=== PATIENT | female | born 1990 | race Caucasian/White ===

== ENCOUNTER 2017-03-09 18:28 | Emergency (ER) | payer OTHER ==
[2017-03-09 19:00] VITALS: BP 128/76; PULSE 113; RESP 18; TEMP 99.2
[2017-03-09] MEDS ORDERED: SODIUM CHLORIDE 0.9% 1,000 ML IV ONE (19:13)
--- NOTE | 2017-03-09 19:26 | ED ---
General Adult HPI - General Chief complaint: Vaginal Bleeding Stated complaint: 7 WEEKS ,BLEEDING BACK AND ABDOMINAL PAIN Time Seen by Provider: 03/09/17 19:11 Source: patient Mode of arrival: ambulatory Limitations: no limitations - History of Present Illness Initial comments: patient is a 26-year-old female who presents with a chief complaint of abdominal cramping, and vaginal bleeding at 7 weeks . Patient states that her bleeding started yesterday. She called her [facility] [employer] TESTER's office today and was advised that her bleeding may be due secondary to intercourse yesterday. The patient states that initially her cramping and bleeding resolved however earlier this evening it began again and is worse. Patient has started bleeding again. She cannot identify any exacerbating or alleviating factors. Timing is constant, patient states that she is not using more than 1 pad an hour. - Related Data Home Medications Medication Instructions Recorded Confirmed Pnv,Calcium 72/Iron/Folic Acid 1 tab PO DAILY 12/18/15 03/09/17 [ Plus Tablet] Allergies Allergy/AdvReac Type Severity Reaction Status Date / Time No Known Allergies Allergy Verified 03/09/17 19:07 Review of Systems ROS Statement: Those systems with pertinent positive or pertinent negative responses have been documented in the HPI. ROS Other: All systems not noted in ROS Statement are negative. Constitutional: Denies: fever Eyes: Denies: vision change ENT: Denies: throat pain Respiratory: Denies: cough Cardiovascular: Denies: chest pain Gastrointestinal: Reports: abdominal pain. Denies: nausea, vomiting Genitourinary: Reports: other (vaginal bleeding) Musculoskeletal: Denies: back pain Skin: Denies: rash Neurological: Denies: headache Past Medical History Past Medical History: No Reported History History of Any Multi-Drug Resistant Organisms: None Reported Past Surgical History: No Surgical Hx Reported Past Anesthesia/Blood Transfusion Reactions: No Reported Reaction Past Psychological History: No Psychological Hx Reported Smoking Status: Never smoker Past Drug Use History: None Reported - Past Family History Father Family Medical History: Diabetes Mellitus, Hyperlipidemia, Hypertension General Exam Limitations: no limitations General appearance: alert, in no apparent distress Head exam: Present: atraumatic, normocephalic Respiratory exam: Present: normal lung sounds bilaterally Cardiovascular Exam: Present: regular rate, normal rhythm GI/Abdominal exam: Present: soft, tenderness (patient has tenderness in the suprapubic region). Absent: distended Rectal exam: Present: deferred Back exam: Present: normal inspection. Absent: CVA tenderness (R), CVA tenderness (L) Neurological exam: Present: alert, oriented X3 Psychiatric exam: Present: normal affect, normal mood Course Vital Signs 03/09/17 18:57 Temperature 99.2 F Pulse Rate 113 H Respiratory 18 Rate Blood Pressure 128/76 O2 Sat by Pulse 97 Oximetry Medical Decision Making - Medical Decision Making patient presents with chief complaint of vaginal bleeding at 7 weeks . I discussed the proposed workup however patient states that she will not have her blood drawn today and she does not like needles. I discussed with her the risks and benefits of refusing evaluation including the need for a program evaluation. At this time, patient states that she was not like to proceed with blood work at this time and would rather defer to her [employer]. Patient is agreeable to have an ultrasound, and urinalysis. 10:18 PM Urinalysis is not all for evidence of infection. Pelvic ultrasound shows a spherical intrauterine gestational sac without pole measured at 5 weeks and 1 day. Exam today is limited by patient's refusal for any lab work. At this time this will be treated as a threatened and the patient was instructed to follow-up with [facility] [employer] tomorrow. She was given Wasn't signs and symptoms that should prompt return visit to the emergency department. - Lab Data Lab Results 03/09/17 Range/Units 19:50 Urine Color Yellow Urine Appearance Clear (Clear) Urine pH 5.5 (5.0-8.0) Ur Specific [place] 1.015 (1.001-1.035) Urine Protein Negative (Negative) Urine Glucose (UA) Negative (Negative) Urine Ketones Trace H (Negative) Urine Blood Moderate H (Negative) Urine Nitrite Negative (Negative) Urine Bilirubin Negative (Negative) Urine Urobilinogen <2.0 (<2.0) mg/dL Ur Leukocyte Esterase Negative (Negative) Urine RBC 23 H (0-5) /hpf Urine WBC 1 (0-5) /hpf Ur Squamous Epith Cells 1 (0-4) /hpf Disposition Clinical Impression: Threatened Disposition: HOME SELF-CARE Condition: Good Instructions: Threatened Miscarriage (ED) Referrals: Jason Lane MD [Primary Care Provider] - 1-2 days
[2017-03-09 20:09] LABS: Appearance,Urine Clear (Clear); Bilirubin,Urine Negative (Negative); Glucose,Urine (UA) Negative (Negative); Ketones,Urine Trace (Negative); Leukocyte Esterase,Urine Negative (Negative); Nitrite,Urine Negative (Negative); PH, Urine 5.5 (5.0-8.0); Particle Count 898; Protein,Urine Negative (Negative); RBC,Urine 23 /hpf (0-5); Specific Gravity,Urine 1.015 (1.001-1.035); Squamous Epithelial Cell,Urine 1 /hpf (0-4); UA Billing (MACRO vs. MICRO) MICRO; Urobilinogen,Urine <2.0 mg/dL (<2.0); WBC,Urine 1 /hpf (0-5)
--- NOTE | 2017-03-09 22:01 | US ---
EXAMINATION TYPE: US OB <=14 wks transvag DATE OF EXAM: 03/09/2017 COMPARISON: NONE CLINICAL HISTORY: Pain. Bleeding EXAM PERFORMED: Transvaginal (TV) and Transabdominal (TA) EXAM MEASUREMENTS: GESTATIONAL AGE / DATING Physician Established: Not yet established Dates by LMP: (6 weeks/5 days) EDC: 10/28/2017 Dates by First Scan: No previous this is first scan Dates by Current Scan for: (5 weeks/1 days) EDC: 11/08/2017 MATERNAL ANATOMY Uterus: 7.6 x 4.4 x 5.7 cm Right Ovary: 3.0 x 2.1 x 2.5cm Left Ovary: 3.0 x 1.8 x 2.3 cm Post CDS / Adnexa: wnl Presence of free fluid: yes Presence of corpus luteal cyst: no Presence of subchorionic bleed: no GESTATION / SURVEY CRL: Not seen at this time MSD: 1.1 cm (5 weeks/1 days) Yolk Sac (normal less than 6mm): 3mm IUP: No IUP seen at this time Date of LMP: 01/21/2017 Beta HcG (if available): Not available at this time patient refused test Gestational sac seen measuring 5 week 1 day. No pole seen at this time IMPRESSION: INTRAUTERINE DOCUMENTED WITH SPHERICAL YOLK SAC, CORRESPONDING WITH 5 WEEK 1 DAY GESTATION SONOGRAPHICALLY.
== END 2017-03-09 22:26 | disposition home or self-care (01) ==
LOC: EC 18:28
DX: O20.0 Threatened abortion (principal); Z53.8 Procedure and treatment not carried out for other reasons; Z3A.01 Less than 8 weeks gestation of pregnancy; Z79.899 Other long term (current) drug therapy
CPT/HCPCS: 76801; 76817; 81001; 99284

== ENCOUNTER → 2017-03-26 | Outpatient (CLI) | payer OTHER ==
--- NOTE | 2017-03-26 10:03 | US ---
EXAMINATION TYPE: US OB <= 14 wk fetus DATE OF EXAM: 03/26/2017 COMPARISON: 03/09/2017 CLINICAL HISTORY: Z36 F/U PREV ABN ULTRASOUND. Follow up abnormal ultrasound EXAM PERFORMED: Transabdominal (TA) EXAM MEASUREMENTS: GESTATIONAL AGE / DATING Physician Established: Not yet established Dates by LMP: (9 weeks/1 days) EDC: 10/28/17 Dates by First Scan: (7 weeks/4 days) EDC: 11/08/17 Dates by Current Scan for: (8 weeks/2 days) EDC: 11/03/17 MATERNAL ANATOMY Uterus: 10.4 x 5.1 x 7.1cm Right Ovary: 4.9 x 2.0 x 2.5cm Left Ovary: 2.9 x 1.3 x 2.1cm Post CDS / Adnexa: appears wnl Presence of free fluid: no Presence of corpus luteal cyst: yes, hypoechoic area right ovary = 2.1 x 2.1 x 2.0cm GESTATION / SURVEY CRL: 1.8cm (8 weeks/2 days) Yolk Sac (normal less than 6mm): 0.4cm Heart Rate: 170 bpm Rhythm: Normal IUP: Viable IUP Date of LMP: 01/21/17 Beta HcG (if available): unavailable Single viable IUP 8wks/2days with ALLEN of 11/03/17. Probable corpus luteum right ovary IMPRESSION: 1. Single intrauterine gestation estimated at 8 weeks 2 days gestation based on current ultrasound me asurements of the crown-rump length. Fetus has a heart rate of 170 bpm.
== END | disposition home or self-care (01) ==
LOC: RADUSWWP 09:02
PROVIDERS: ATTEND Obstetrics & Gynecology
DX: Z36.89 Encounter for other specified antenatal screening (principal); Z3A.08 8 weeks gestation of pregnancy
CPT/HCPCS: 76801

== ENCOUNTER → 2017-03-31 | Outpatient (CLI) | payer OTHER ==
[2017-03-31 14:44] LABS: HCT 38.7 % (34.0-46.0); MCH 29.7 pg (25.0-35.0); MCHC 33.5 g/dL (31.0-37.0); MCV 88.8 fL (80.0-100.0); Mean Platelet Volume 7.3; Platelet Count 188 k/uL (150-450); RBC 4.36 m/uL (3.80-5.40); RDW 12.1 % (11.5-15.5); WBC 9.2 k/uL (3.8-10.6)
[2017-03-31 14:56] LABS: Glucose 106 mg/dL (74-99)
[2017-03-31 20:27] LABS: HIV AB P24 Non-Reactive (Non-Reactive); HIV P24 AG Non-Reactive (Non-Reactive)
[2017-04-02 05:15] LABS: Toxoplasma Antibody (IgG) <3.0 IU/mL (<7.2); Toxoplasma Antibody (IgM) <3.0 AU/mL (<8.0)
== END | disposition home or self-care (01) ==
LOC: LABWHC1 14:11
PROVIDERS: ATTEND Obstetrics & Gynecology
DX: O26.811 Pregnancy related exhaustion and fatigue, first trimester (principal); Z3A.00 Weeks of gestation of pregnancy not specified
CPT/HCPCS: 36415; 82565; 82947; 85027; 86762; 86777; 86778; 86780; 86850; 86900; 86901; 87340; 87390

== ENCOUNTER → 2017-06-03 | Outpatient (CLI) | payer OTHER ==
--- NOTE | 2017-06-04 08:11 | US ---
EXAMINATION TYPE: US OB anatomy transabd DATE OF EXAM: 06/03/2017 COMPARISON: NONE HISTORY: O36.62X0 Large for dates second trimester LGA TECHNIQUE: EXAM MEASUREMENTS: GESTATIONAL AGE / DATING Physician Established: (17 weeks/4 days) 11/07/2017 EDC: Dates by LMP: (19 weeks/0 days) EDC: 10/28/2017 Dates by First Scan: (17 weeks/3 days) EDC: 11/08/2017 Dates by Current Scan for: (18 weeks/3 days) EDC: 11/02/2017 SURVEY IUP: Single PLACENTA: Posterior PREVIA: No previa REYES: 12.1 cm Normal CERVICAL LENGTH (transabdominal: norm > 3.0cm): 3.4 cm BIOMETRY PRESENTATION: Breech LIE: Longitudinal BPD: 4.0 cm 18 weeks / 2 days HC: 15.3 cm 18 weeks / 3 days AC: 13.1 cm 18 weeks / 5 days FL: 2.5 cm 17 weeks / 4 days ESTIMATED WEIGHT IN GRAMS: 226 grams ESTIMATED WEIGHT IN LBS/OZ: 0 lbs. 8 oz. WEIGHT PERCENTAGE BASED ON ESTABLISHED DATE: 80 % HC/AC: 1.1 Normal FL/AC: 19 Normal HEART RATE: 139 bpm RHYTHM: Normal ANATOMY SEEN (within normal limits): * Lateral Vent (< 1 cm) 0.4 cm * Cisterna Magna (< 1.1 cm) 0.2 cm * Nuchal Fold (< 0.6 cm) 0.2 cm * Cerebellum (varies with age) 1.8 cm Choroid Plexus (bilateral) Midline Falx Cavus Septi Pellucidi Four Chamber Heart Outflow tracts: LVOT/RVOT Stomach Situs Nose / Lips Diaphragm Kidneys (bilateral) Bladder Cord Insert Three Vessel Cord Longitudinal Spine Transverse Spine Arms (bilateral) Legs (bilateral) IMPRESSION: 1. Single intrauterine gestation estimated at 18 weeks 3 days gestation. Cardiac activity measures 13 9 bpm. 2. Calculated EDC based on current measurements is 11/02/2017.
== END | disposition home or self-care (01) ==
LOC: RADUSWWP 08:14
PROVIDERS: ATTEND Obstetrics & Gynecology
DX: O36.62X0 Maternal care for excessive fetal growth, second trimester, not applicable or unspecified (principal); Z3A.18 18 weeks gestation of pregnancy
CPT/HCPCS: 76811

== ENCOUNTER → 2017-07-18 | Outpatient (CLI) | payer OTHER ==
[2017-07-18 10:22] LABS: HCT 34.2 % (34.0-46.0); HGB 11.3 gm/dL (11.4-16.0); MCH 29.5 pg (25.0-35.0); MCV 89.4 fL (80.0-100.0); Mean Platelet Volume 7.3; Platelet Count 155 k/uL (150-450); RBC 3.82 m/uL (3.80-5.40); WBC 9.2 k/uL (3.8-10.6)
== END | disposition home or self-care (01) ==
LOC: LABWHC1 08:47
PROVIDERS: ATTEND Obstetrics & Gynecology
DX: Z34.82 Encounter for supervision of other normal pregnancy, second trimester (principal); Z3A.00 Weeks of gestation of pregnancy not specified
CPT/HCPCS: 36415; 82950; 85027

== ENCOUNTER → 2017-09-25 | Outpatient (CLI) | payer OTHER ==
--- NOTE | 2017-09-25 11:09 | US ---
EXAMINATION TYPE: US OB anatomy transabd DATE OF EXAM: 09/25/2017 COMPARISON: NONE HISTORY: O36.63X0 LARGE FOR DATES TECHNIQUE: Transabdominal (TA) EXAM MEASUREMENTS: GESTATIONAL AGE / DATING Physician Established: (35 weeks/2 days) EDC: 10/28/17 Dates by LMP: (35 weeks/2 days) EDC: 10/28/17 Dates by First Scan: (34 weeks/3 days) EDC: 11/03/17 Dates by Current Scan for: (33 weeks/1 days) EDC: 11/12/17 SURVEY IUP: Single PLACENTA: Posterior PREVIA: No previa REYES: 10.69 cm CERVICAL LENGTH (transabdominal: norm > 3.0cm): 3.2 cm BIOMETRY PRESENTATION: Vertex LIE: Longitudinal BPD: 8.5 cm 34 weeks / 1 days HC: 30.7 cm 34 weeks / 1 days AC: 30.0 cm 34 weeks / 0 days FL: 6.3 cm 32 weeks / 4 days ESTIMATED WEIGHT IN GRAMS: 2235 grams ESTIMATED WEIGHT IN LBS/OZ: 4 lbs. 15 oz. WEIGHT PERCENTAGE BASED ON ESTABLISHED DATE: 10 % HC/AC: 1.0 FL/AC: 20.9 HEART RATE: 143 bpm RHYTHM: Normal ANATOMY SEEN (within normal limits): * Cisterna Magna (< 1.1 cm) 0.4 cm Midline Falx Cavus Septi Pellucidi Four Chamber Heart Stomach Situs Nose / Lips Diaphragm Kidneys (bilateral) Bladder Three Vessel Cord Longitudinal Spine Transverse Spine ANATOMY NOT SEEN: due to shadowing from bone, advanced age, position, crowding Arms (bilateral) Legs (bilateral) Cord Insert Outflow tracts: LVOT/RVOT * Nuchal Fold (< 0.6 cm) cm * Cerebellum (varies with age) cm Choroid Plexus (bilateral) * Lateral Vent (< 1 cm) cm IMPRESSION: Limited survey. Single viable intrauterine corresponding to ultrasound age related 33 weeks 1 day with estimated date of delivery 11/12/2017.
== END | disposition home or self-care (01) ==
LOC: RADUSWWP 07:45
PROVIDERS: ATTEND Obstetrics & Gynecology
DX: O36.63X0 Maternal care for excessive fetal growth, third trimester, not applicable or unspecified (principal); Z3A.33 33 weeks gestation of pregnancy
CPT/HCPCS: 76811

== ENCOUNTER → 2017-10-09 | Outpatient (CLI) | payer OTHER ==
--- NOTE | 2017-10-12 08:29 | US ---
EXAMINATION TYPE: US OB >= 14 wk fetus DATE OF EXAM: 10/09/2017 COMPARISON: US 09/25/2017 CLINICAL HISTORY: 26-year-old female O36.5930Maternal care for other known or suspected Measuring sm all TECHNIQUE: Transabdominal (TA) FINDINGS: GESTATIONAL AGE / DATING Physician Established: (37 weeks/2 days) EDC: 10/28/2017 Dates by LMP: (37 weeks/2 days) EDC: 10/28/2017 Dates by First Scan: (36 weeks/3 days) EDC: 11/03/2017 Dates by Current Scan: (35 weeks/5 days) EDC: 11/08/2017. 4 days more growth than expected from 09/25/17. SURVEY IUP: Single PLACENTA: Posterior PREVIA: No Previa REYES: 9.9 cm Normal CERVICAL LENGTH (transabdominal: norm > 3.0cm): 3.5 cm BIOMETRY PRESENTATION: Vertex LIE: Longitudinal BPD: 8.95 cm 36 weeks / 2 days HC: 32.13 cm 36 weeks / 2 days AC: 31.22 cm 35 weeks / 1 days FL: 7.05 cm 36 weeks / 1 days ESTIMATED WEIGHT IN GRAMS: 2733 grams ESTIMATED WEIGHT IN LBS/OZ: 6 lbs. 0 oz. WEIGHT PERCENTAGE BASED ON ESTABLISHED DATES: 18.2% (vs 10th percentile on 09/25/2017) HC/AC: 1.03 Normal FL/AC: 22.59 Normal HEART RATE: 126 bpm RHYTHM: Normal Viable IUP, measurements consistent with dates. Preliminary results called to Dr Ngo at time of exam. IMPRESSION: 1. Single live intrauterine with established gestational age of 37 weeks 2 days by LMP. Cur rent ultrasound biometry is smaller by 1 week and 4 days but with 4 days more growth than expected fr 09/25/2017. 2. EFW has increased from the 10th percentile on 09/25/2017 now to the 18th percentile. Continued follo w-up as indicated.
== END | disposition home or self-care (01) ==
LOC: RADUSWWP 15:40
PROVIDERS: ATTEND Obstetrics & Gynecology
DX: O36.5930 Maternal care for other known or suspected poor fetal growth, third trimester, not applicable or unspecified (principal); Z3A.37 37 weeks gestation of pregnancy
CPT/HCPCS: 76805

== ENCOUNTER 2017-10-10 17:09 | Inpatient (IN) | payer OTHER ==
--- NOTE | 2017-10-10 20:16 | P.HPOB ---
History of Present Illness H&P Date: 10/10/17 Chief Complaint: Contractions. This patient is a pleasant 26-year-old 2 para 1 female estimated date of confinement 10/28/2017 estimated gestational age 37-3/7 weeks gestation who is admitted to labor and delivery with complaints of regular painful contractions that started at 2:30 this afternoon. Patient initially was 2 cm dilated is now 4 cm dilated thought to be in active labor. care is complicated by small for gestational age which was diagnosed at 35 weeks. Most recently she did have an ultrasound that showed the growth to be at the 60th percentile and had interval growth. Estimated weight at this time is 5-1/ 2 pounds. care otherwise has been uncomplicated. Review of Systems Constitutional: Denies chills, Denies fever Gastrointestinal: Reports heartburn Genitourinary: Reports Menstruation: Reports amenorrhea Past Medical History Past Medical History: No Reported History History of Any Multi-Drug Resistant Organisms: None Reported Past Surgical History: No Surgical Hx Reported Past Anesthesia/Blood Transfusion Reactions: No Reported Reaction Past Psychological History: No Psychological Hx Reported Smoking Status: Never smoker Past Alcohol Use History: None Reported Past Drug Use History: None Reported - Past Family History Father Family Medical History: Diabetes Mellitus, Hyperlipidemia, Hypertension Medications and Allergies Home Medications Medication Instructions Recorded Confirmed Type Ranitidine HCl [Zantac] 75 mg PO BID PRN 10/10/17 10/10/17 History Allergies Allergy/AdvReac Type Severity Reaction Status Date / Time No Known Allergies Allergy Verified 10/10/17 17:21 Exam Vital Signs Temp Pulse Resp BP 10/10/17 17:23 99.2 F 81 16 128/80 Intake and Output 10/10/17 10/10/17 10/10/17 06:59 14:59 22:59 Other: Weight 58.967 kg - OBG Physical Exam Abdomen: bowel sounds normal, no diffuse tenderness, no bruit present, no guarding noted, no hepatomegaly, no splenomegaly, no mass Vulva: both: normal Vagina: normal moisture, no discharge Cervix: lesion (Cervix per the RN is 4 cm dilated.) Uterus: enlarged (Fundal height is 36 cm) Results blood work shows she is AB+, rubella immune, RPR nonreactive, hepatitis B negative, HIV is nonreactive, Glucola was normal, group B strep was negative, ultrasound most recently showed estimated weight approximately 5 -1/2 pounds at the 16th percentile. Assessment and Plan Assessment: This is a pleasant 26-year-old 2 para 1 female 37-3/7 weeks gestation admitted to labor and delivery in active labor. Baby does appear to be small for gestational age but otherwise uncomplicated . Plan is anticipate normal vaginal delivery. (1) Normal labor Current Visit: No Status: Acute Code(s): O80 - ENCOUNTER FOR FULL-TERM UNCOMPLICATED DELIVERY SNOMED Code(s): 17505174 (2) Third trimester Current Visit: No Status: Acute Code(s): Z33.1 - STATE, INCIDENTAL SNOMED Code(s): 64070362
[2017-10-10] MEDS: LACTATED RINGERS 1,000 ML IV SCH ×2 (20:20→20:59)
[2017-10-10] MEDS ORDERED: LIDOCAINE 1% (PF) 10 MG/ML (30 ML SDV) SQ PRN (20:22)
[2017-10-10] MEDS ORDERED: CARBOPROST TROMETHAMINE 250 MCG/ML 1 ML AMP IM PRN (20:22)
[2017-10-10] MEDS ORDERED: OXYTOCIN 10 UNIT/ML 1 ML VIAL IM PRN (20:22)
[2017-10-10] MEDS ORDERED: TERBUTALINE 1 MG/ML VIAL SQ PRN (20:22)
[2017-10-10] MEDS ORDERED: METHYLERGONOVINE 0.2 MG/ML 1 ML AMP IM PRN (20:22)
--- NOTE | 2017-10-10 20:26 | P.MSEPDOC ---
Presenting Problems - Arrival Data Date of Arrival on Unit: 10/10/17 Time of Arrival on Unit: 17:09 Mode of Transport: Ambulatory - Complaint OB-Reason for Admission/Chief Complaint: Possible Onset of Labor Comment: 1430 q 5min Medical History - Information : 2 Para: 1 Term: 1 : 0 Abortions: Spontaneous or Elective: 0 Number of Living Children: 1 - Gestational Age Gestational Age by ALLEN (wks/days): 37 Weeks and 3 Days Review of Systems - Review of Systems Constitutional: No problems Breast: No problems ENT: No problems Cardiovascular: No problems Respiratory: No problems Gastrointestinal: No problems Genitourinary: No problems Musculoskeletal: No problems Neurological: No problems Skin: No problems Vital Signs - Temperature Temperature: 99.2 F Temperature Source: Temporal Artery Scan - Pulse Right Brachial Pulse Rate: 81 Pulse Assessment Method: Automatic Cuff - Respirations Respiratory Rate: 16 Oxygen Delivery Method: Room Air - Blood Pressure Right Arm Blood Pressure: 128/80 Blood Pressure Mean: 96 Blood Pressure Source: Automatic Cuff Medical Screen Scoring (Pre) - Cervical Exam Dilation: 1-3 cm = 1 Effacement: More than 50% = 2 Membranes: Intact - Uterine Contractions Frequency: > or = 36 weeks =2 Duration: > 40 seconds = 2 Intensity: N/A - Maternal Vital Signs Maternal Temperature: N/A Maternal Blood Pressure: N/A Signs of Preeclampsia: N/A Maternal Respirations: N/A - Pain Assessment Pain Location and Character: Abdomen Pain Scale Used: Numeric (1 - 10) Pain Intensity: 5 Pain Description: *Acute, Tightness Pain Frequency: Intermittent Pain Duration: 3 Pain Duration Units: Hours Pain Behavior: None Exhibited Pain Aggravating Factors: Contractions - Maternal Trauma Maternal Trauma: N/A - Assessment Baseline FHR: 125 Heart Rate - NICHD Category: Category I (Normal) = 0 NST: Reactive Position: N/A Station: N/A - Total Score Total Score (Pre): 7 - Level of Risk Level of Risk: Medium (6-9) Medical Screen Scoring (Post) - Cervical Exam Dilation: 1-3 cm = 1 Effacement: More than 50% = 2 Membranes: Intact - Uterine Contractions Frequency: > or = 36 weeks =2 Duration: > 40 seconds = 2 Intensity: N/A - Total Score Total Score (Post): 7 - Post Treatment Level of Risk Post Treatment Level of Risk: Medium (6-9) Physician Notification (Post) - Physician Notified Physician Notified Date: 10/10/17 Physician Notified Time: 19:45 Physician/Practitioner Notified:: Dr. Ngo Spoke With: Dr. Ngo New Order Received: Yes - Notification Comment Comment: admit for labor Disposition - Disposition OB Disposition: Admit I agree with the RN Medical Screening Exam: Yes Risk & Benefit of care provided described in d/c instruction: Yes Diagnosis: ENCOUNTER FOR FULL-TERM UNCOMPLICATED DELIVERY
[2017-10-10 20:32] LABS: Basophils # (A) 0.1 k/uL (0-0.2); Basophils % (A) 0 %; Eosinophils # (A) 0.1 k/uL (0-0.7); Eosinophils % (A) 1 %; HCT 32.4 % (34.0-46.0); HGB 10.6 gm/dL (11.4-16.0); Lymphocytes # (A) 2.3 k/uL (1.0-4.8); Lymphocytes % (A) 21 %; MCH 27.3 pg (25.0-35.0); MCHC 32.6 g/dL (31.0-37.0); MCV 83.7 fL (80.0-100.0); Mean Platelet Volume 8.4; Monocytes # (A) 0.7 k/uL (0-1.0); Monocytes % (A) 7 %; Neutrophils # (A) 7.3 k/uL (1.3-7.7); Neutrophils % (A) 69 %; Platelet Count 137 k/uL (150-450); RBC 3.87 m/uL (3.80-5.40); RDW 14.1 % (11.5-15.5); WBC 10.6 k/uL (3.8-10.6)
[2017-10-10 21:14] LABS: Poikilocytosis (M) Present
[2017-10-10 21:32] VITALS: BMI 21.1
[2017-10-10] MEDS ORDERED: ROPIVACAINE 100 MG, fentaNYL (PF) 200 MCG in SODIUM CHLORIDE 0.9% 76 ML EPIDURAL ONE (22:30)
[2017-10-10] MEDS ORDERED: AMPICILLIN 2,000 MG in SODIUM CHLORIDE 0.9% 100 ML IVPB STA (23:54)
[2017-10-11] MEDS ORDERED: BENZOCAINE/MENTHOL SPRAY 1 GM/SPRAY AEROSOL TOPICAL PRN (00:31)
[2017-10-11] MEDS ORDERED: WITCH HAZEL 1 EACH MED..PAD TOPICAL PRN (00:31)
[2017-10-11] MEDS ORDERED: HYDROCORTISONE 2.5% RECTAL CREAM 30 GM TUBE RECTAL PRN (00:31)
[2017-10-11] MEDS ORDERED: ZOLPIDEM 5 MG TAB PO PRN (00:31)
[2017-10-11] MEDS ORDERED: LANOLIN CREAM 5 GM TUBE TOPICAL PRN (00:31)
[2017-10-11] MEDS ORDERED: SIMETHICONE 80 MG CHEWABLE PO PRN (00:31)
[2017-10-11] MEDS ORDERED: BISACODYL 10 MG SUPP RECTAL PRN (00:31)
[2017-10-11] MEDS ORDERED: diphenhydrAMINE 50 MG/ML 1 ML VIAL IVP PRN (00:31)
[2017-10-11] MEDS ORDERED: ACETAMINOPHEN TAB 325 MG TAB PO PRN (00:31)
[2017-10-11] MEDS ORDERED: diphenhydrAMINE 25 MG CAP PO PRN (00:31)
--- NOTE | 2017-10-11 00:34 | P.PROBDLV ---
Vaginal Delivery Note - . Vaginal Delivery Note: Normal spontaneous vaginal delivery viable male infant Apgars 8 and 9 delivery time is 0015 hours. Please see dictated H&P for intimate details of this patient's admission. Brief summary this is a pleasant 26-year-old 2 para 1 female 37-3/7 weeks gestation admitted to labor and delivery in active labor. Patient is artificial rupture membranes at 5 cm dilated for clear fluid. Patient does receive an epidural for pain control and is does receive some augmentation of labor with Pitocin per protocol. Labor quickly progresses and she is to complete. Patient pushes the head to the perineum the posterior perineum was supported. We have controlled delivery of the 's head over the intact perineum. Mouth and nares are bulb suctioned. There is a loose nuchal cord which is easily reduced. With gentle downward traction we then have deliver the anterior posterior shoulder and rest this 's body. This is a vigorous viable male infant Apgars are 8 and 9 delivery time was 0015 hours. After delivery the infant the placenta is spontaneously delivered intact. Cord was are ready cut after it was done pulsating did appear trivascular. Inspection of perineum shows a first-degree posterior laceration which repaired with 3-0 Vicryl usual fashion. Excellent reapproximation is noted. Estimated blood loss 100 mL. There are no complications. and mother stable delivery room.
[2017-10-11] MEDS: IBUPROFEN 600 MG TAB PO PRN ×3 (01:22→16:04)
[2017-10-11] MEDS ORDERED: OXYTOCIN 20 UNITS/1000 ML NS 1,000 ML IV SCH (01:30)
[2017-10-11] MEDS: SENNOSIDES-DOCUSATE SODIUM 1 EACH TAB PO SCH ×2 (08:05→20:00)
[2017-10-12] MEDS: IBUPROFEN 600 MG TAB PO PRN ×4 (03:25→21:11)
--- NOTE | 2017-10-12 06:27 | P.PNOBGVD ---
Subjective - Subjective Patient reports: Reports appetite normal, Reports voiding normally, Reports pain well controlled, Reports ambulating normally : doing well Objective - Latest Vital Signs Latest vital signs: Vital Signs Temp Pulse Resp BP 10/12/17 00:00 98.3 F 61 16 109/62 10/11/17 20:00 98.1 F 62 16 123/64 10/11/17 16:00 99.0 F 66 16 141/81 10/11/17 12:00 98.8 F 66 16 141/81 10/11/17 08:00 98.7 F 62 16 130/83 10/11/17 06:30 98.7 F 68 16 138/80 - Exam Lungs: bilateral: normal Chest: Normal S1, Normal S2 Extremities: Present: normal Abdomen: Present: normal appearance, soft Uterus: Present: normal, firm Assessment and Plan Assessment: day #1. Patient is resting without complaints and wishes to go home. Vital signs are stable she is afebrile. Uterus is firm nontender she's having normal lochia. There is some question is whether the baby will go home today or not and therefore patient will go home with the baby can go home otherwise she will stay until tomorrow. Plan at this time is to continue routine postoperative care. (1) Normal labor Current Visit: No Status: Acute Code(s): O80 - ENCOUNTER FOR FULL-TERM UNCOMPLICATED DELIVERY SNOMED Code(s): 81107822 (2) Third trimester Current Visit: No Status: Acute Code(s): Z33.1 - STATE, INCIDENTAL SNOMED Code(s): 07834359
--- NOTE | 2017-10-12 06:34 | P.DS ---
Providers Date of admission: 10/10/17 19:40 Expected date of discharge: 10/12/17 Attending physician: Laith Ngo Primary care physician: Stated None - Discharge Diagnosis(es) (1) Normal labor Current Visit: No Status: Acute (2) Third trimester Current Visit: No Status: Acute Hospital Course: Please see dictated H&P for intimate details of this patient's admission. Brief summary this pleasant 26-year-old 2 para 1 female 37-3/7 weeks gestation admitted to labor and delivery with complaints of contractions found to be in active labor. Patient quickly goes on to have a vaginal delivery viable male . Please see dictated delivery note. day #1 patient is without complaints wishes to go home. Patient's felt be stable for discharge home follow up with me in 6 weeks. Procedures: Normal spontaneous vaginal delivery Patient Condition at Discharge: Good Plan - Discharge Summary New Discharge Prescriptions: New Ibuprofen [Motrin] 600 mg PO Q6HR PRN #40 tab PRN Reason: Mild Pain Or Fever >= 100.5 No Action Ranitidine HCl [Zantac] 75 mg PO BID PRN PRN Reason: Heartburn Discharge Medication List Ranitidine HCl [Zantac] 75 mg PO BID PRN 10/10/17 [History] Ibuprofen [Motrin] 600 mg PO Q6HR PRN #40 tab 10/12/17 [Rx] Follow up Appointment(s)/Referral(s): Laith Ngo MD [STAFF PHYSICIAN] - 6 Weeks Patient Instructions/Handouts: Vaginal Delivery (DC) Activity/Diet/Wound Care/Special Instructions: No intercourse or anything per vagina for 6 weeks. Please call if any fever, chills, excessive vaginal bleeding, and/or abdominal pain. Discharge Disposition: HOME SELF-CARE
[2017-10-12] MEDS: SENNOSIDES-DOCUSATE SODIUM 1 EACH TAB PO SCH ×2 (08:37→08:40)
[2017-10-13] MEDS: IBUPROFEN 600 MG TAB PO PRN ×2 (04:08→10:04)
--- NOTE | 2017-10-13 06:28 | P.PNOBGVD ---
Subjective - Subjective Patient reports: Reports appetite normal, Reports voiding normally, Reports pain well controlled, Reports ambulating normally : doing well Objective - Latest Vital Signs Latest vital signs: Vital Signs Temp Pulse Resp BP Pulse Ox 10/13/17 00:00 98.3 F 60 16 132/66 10/12/17 16:00 98.4 F 78 18 118/72 97 10/12/17 09:00 98.0 F 76 18 131/71 100 - Exam Lungs: bilateral: normal Chest: Normal S1, Normal S2 Extremities: Present: normal Abdomen: Present: normal appearance, soft Uterus: Present: normal, firm Assessment and Plan Assessment: Post day #2. Patient's baby did need to stay yesterday therefore the patient decided to stay. Vital signs are stable she is afebrile. Uterus is firm nontender she's having normal lochia. Plan today is to continue routine care and discharge home later today. (1) Normal labor Current Visit: No Status: Acute Code(s): O80 - ENCOUNTER FOR FULL-TERM UNCOMPLICATED DELIVERY SNOMED Code(s): 37174892 (2) Third trimester Current Visit: No Status: Acute Code(s): Z33.1 - STATE, INCIDENTAL SNOMED Code(s): 69919957
[2017-10-13 08:52] VITALS: BP 135/83; PULSE 83; RESP 18; TEMP 98.2
[2017-10-13] MEDS: SENNOSIDES-DOCUSATE SODIUM 1 EACH TAB PO SCH (08:53)
== END 2017-10-13 11:20 | disposition home or self-care (01) | DRG 775 ==
LOC: FBPOP 17:09 → 4FBP 19:40
PROVIDERS: ADMIT Obstetrics & Gynecology; ATTEND Obstetrics & Gynecology
PROC: 10E0XZZ Delivery of Products of Conception, External Approach (ICD-10-PCS; principal; 2017-10-11)
PROC: 3E0R3NZ Introduction of Analgesics, Hypnotics, Sedatives into Spinal Canal, Percutaneous Approach (ICD-10-PCS; principal; 2017-10-11)
PROC: 10907ZC Drainage of Amniotic Fluid, Therapeutic from Products of Conception, Via Natural or Artificial Opening (ICD-10-PCS; principal; 2017-10-11)
PROC: 00HU33Z Insertion of Infusion Device into Spinal Canal, Percutaneous Approach (ICD-10-PCS; principal; 2017-10-11)
PROC: 0HQ9XZZ Repair Perineum Skin, External Approach (ICD-10-PCS; principal; 2017-10-11)
DX: O36.5930 Maternal care for other known or suspected poor fetal growth, third trimester, not applicable or unspecified (principal); Z37.0 Single live birth; O69.81X0 Labor and delivery complicated by cord around neck, without compression, not applicable or unspecified; Z3A.37 37 weeks gestation of pregnancy; Z82.49 Family history of ischemic heart disease and other diseases of the circulatory system; Z83.3 Family history of diabetes mellitus; O70.0 First degree perineal laceration during delivery
CPT/HCPCS: 59025; 76805; 85025; 99213

== ENCOUNTER → 2019-03-30 | Outpatient (CLI) | payer BC, OTHER ==
[2019-03-30 15:04] LABS: HCT 38.6 % (34.0-46.0); HGB 13.2 gm/dL (11.4-16.0); MCH 30.8 pg (25.0-35.0); MCHC 34.3 g/dL (31.0-37.0); MCV 89.8 fL (80.0-100.0); Mean Platelet Volume 8.3; Platelet Count 177 k/uL (150-450); RDW 11.9 % (11.5-15.5); WBC 10.7 k/uL (3.8-10.6)
[2019-03-30 18:36] LABS: African American GFR (CKD) 134.7 (60.0-200.0); Non-African American GFR(CKD) 116.3 (60.0-200.0)
[2019-03-30 19:22] LABS: Hepatitis B Surface Antigen Non-Reactive (Non-Reactive)
[2019-03-30 20:13] LABS: HIV 1 AB Non-Reactive (Non-Reactive); HIV 2 AB Non-Reactive (Non-Reactive); HIV AB P24 Non-Reactive (Non-Reactive); HIV P24 AG Non-Reactive (Non-Reactive)
[2019-03-31 05:47] LABS: Toxoplasma Antibody (IgG) <3.0 IU/mL (<7.2); Toxoplasma Antibody (IgM) <3.0 AU/mL (<8.0)
== END | disposition home or self-care (01) ==
LOC: LABWHC1 14:21
PROVIDERS: ATTEND Obstetrics & Gynecology
DX: Z34.81 Encounter for supervision of other normal pregnancy, first trimester (principal)
CPT/HCPCS: 36415; 82565; 82947; 85027; 86762; 86777; 86778; 86780; 86850; 86900; 86901; 87340; 87390

== ENCOUNTER 2019-04-08 14:49 | Emergency (ER) | payer BC, OTHER ==
[2019-04-08 14:54] VITALS: PULSE 82; RESP 20
--- NOTE | 2019-04-08 15:24 | ED ---
Female Urogenital HPI - General Source: patient Mode of arrival: ambulatory Limitations: no limitations <Simona Sherman - Last Filed: 04/08/19 19:43> <Shira Polo - Last Filed: 04/13/19 15:01> - General Chief complaint: Vaginal Bleeding Stated complaint: 11wks /vaginal bleeding Time Seen by Provider: 04/08/19 14:56 - History of Present Illness Initial comments: Patient is a 28-year-old female presenting to the emergency Department with complaints of vaginal bleeding that has been increasing throughout today. Patient is currently 11 weeks . . Her PRICE CHANGER is Dr. Ngo. Patient does have a history of a subchorionic bleed so she has been having a mild spotting throughout this however today the color has changed to more of a bright red and has been a lot more than she's had in the past. Patient states she called her PRICE CHANGER's office today and spoke to Dr. Beasley who recommended her coming to the ER for an ultrasound. Patient denies any abdominal pain or cramping right now. She denies recent fever, cough. She has no other complaints. Upon arrival to the ER, vital signs are stable. (Simona Sherman) - Related Data Home Medications Medication Instructions Recorded Confirmed Ranitidine HCl [Zantac] 75 mg PO BID PRN 10/10/17 10/10/17 Previous Rx's Medication Instructions Recorded Ibuprofen [Motrin] 600 mg PO Q6HR PRN #40 tab 10/12/17 Allergies Allergy/AdvReac Type Severity Reaction Status Date / Time No Known Allergies Allergy Verified 04/08/19 14:54 Review of Systems ROS Other: All systems not noted in ROS Statement are negative. <Simona Sherman - Last Filed: 04/08/19 19:43> ROS Other: All systems not noted in ROS Statement are negative. <Shira Polo - Last Filed: 04/13/19 15:01> ROS Statement: Those systems with pertinent positive or pertinent negative responses have been documented in the HPI. Past Medical History Past Medical History: No Reported History History of Any Multi-Drug Resistant Organisms: None Reported Past Surgical History: No Surgical Hx Reported Past Anesthesia/Blood Transfusion Reactions: No Reported Reaction Past Psychological History: No Psychological Hx Reported Smoking Status: Never smoker Past Alcohol Use History: None Reported Past Drug Use History: None Reported - Past Family History Father Family Medical History: Diabetes Mellitus, Hyperlipidemia, Hypertension <Natividad Shermantrixie Gallardo - Last Filed: 04/08/19 19:43> General Exam Limitations: no limitations <Simona Sherman - Last Filed: 04/08/19 19:43> - General Exam Comments Initial Comments: GENERAL: Well-appearing, well-nourished and in no acute distress. HEAD: Atraumatic, normocephalic. EYES: Pupils equal round and reactive to light, extraocular movements intact, sclera anicteric, conjunctiva are normal. ENT: TMs normal, nares patent, oropharynx clear without exudates. Moist mucous membranes. NECK: Normal range of motion, supple without lymphadenopathy or JVD. LUNGS: Breath sounds clear to auscultation bilaterally and equal. No wheezes rales or rhonchi. HEART: Regular rate and rhythm without murmurs, rubs or gallops. ABDOMEN: Soft, nontender, normoactive bowel sounds. No guarding, no rebound. No masses appreciated. : Declined EXTREMITIES: Normal range of motion, no pitting or edema. No clubbing or cyanosis. PSYCH: Normal mood, normal affect. SKIN: Warm, Dry, normal turgor, no rashes or lesions noted. (Simona Sherman) Course Vital Signs 04/08/19 04/08/19 14:51 17:15 Temperature 97.7 F 98.0 F Pulse Rate 82 82 Respiratory 20 20 Rate Blood Pressure 124/69 126/62 O2 Sat by Pulse 97 99 Oximetry Medical Decision Making <WhitNatividadSimona L - Last Filed: 04/08/19 19:43> <Shira Polo - Last Filed: 04/13/19 15:01> - Medical Decision Making Patient is a 28-year-old female presenting with an increase in vaginal bleeding since this morning. Patient is currently 11 weeks . She is OB is Dr. Ngo. Patient has been dealing with a subchronic bleed throughout this however today the bleeding has increased and change in color. Patient called her office and Dr. Beasley wanted her to be seen for an ultrasound. Patient denies any abdominal pain or cramping. I recommended blood work as well as a pelvic exam however patient declined both stating she just had both done at Dr. Ngo's office earlier this week and she does not do well with needles. Patient's blood type is AB+. Ultrasound reveals a subchorionic bleed, heart rate is 161, no other acute abnormalities seen. I discussed these findings with the patient. She is stable for discharge at this time. Patient will follow up with Dr. Ngo as normal. Return parameters were discussed with the patient she verbalized understanding. She is in agreement with this plan of care. Case discussed with Dr. Polo. (Simona Sherman) I was available for consultation in the emergency department. The history and physical exam were done by the midlevel provider. I was consulted for this patients care. I reviewed the case with the midlevel provider and based on their presentation of the patient, I agree with the assessment, medical decision making and plan of care as documented. Chart was dictated using [employer] dictation software. Attempts were made to correct any dictation errors however some typographical errors may persist. (Shira Polo) - Lab Data Lab Results 04/08/19 Range/Units 15:46 Urine Color Light Yellow Urine Appearance Clear (Clear) Urine pH 7.0 (5.0-8.0) Ur Specific [place] 1.010 (1.001-1.035) Urine Protein Negative (Negative) Urine Glucose (UA) Negative (Negative) Urine Ketones Negative (Negative) Urine Blood Moderate H (Negative) Urine Nitrite Negative (Negative) Urine Bilirubin Negative (Negative) Urine Urobilinogen <2.0 (<2.0) mg/dL Ur Leukocyte Esterase Trace H (Negative) Urine RBC 1 (0-5) /hpf Urine WBC 1 (0-5) /hpf Ur Squamous Epith Cells 3 (0-4) /hpf Disposition Is patient prescribed a controlled substance at d/c from ED?: No <Simona Sherman - Last Filed: 04/08/19 19:43> <Shira Polo - Last Filed: 04/13/19 15:01> Clinical Impression: Vaginal bleeding during Disposition: HOME SELF-CARE Condition: Stable Instructions (If sedation given, give patient instructions): Non-Threatening First Trimester Vaginal Bleed (ED) Additional Instructions: Please return to the Emergency Department if symptoms worsen or any other concerns. Continue to follow-up with your PRICE CHANGER. Referrals: Jason Lane MD [Primary Care Provider] - 1-2 days
[2019-04-08 15:56] LABS: Appearance,Urine Clear (Clear); Bilirubin,Urine Negative (Negative); Blood,Urine Moderate (Negative); Color,Urine Light Yellow; Glucose,Urine (UA) Negative (Negative); Ketones,Urine Negative (Negative); Leukocyte Esterase,Urine Trace (Negative); Nitrite,Urine Negative (Negative); Protein,Urine Negative (Negative); RBC,Urine 1 /hpf (0-5); Squamous Epithelial Cell,Urine 3 /hpf (0-4); Urobilinogen,Urine <2.0 mg/dL (<2.0); WBC,Urine 1 /hpf (0-5)
--- NOTE | 2019-04-08 16:58 | US ---
EXAMINATION TYPE: Transabdominal DATE OF EXAM: 04/08/2019 4:37 PM COMPARISON: NONE CLINICAL HISTORY: vaginal bleeding, hx of subchorionic bleed. EXAM PERFORMED: Transabdominal (TA) EXAM MEASUREMENTS: GESTATIONAL AGE / DATING Physician Established: (11 weeks/2 days) EDC: 10/26/19 Dates by LMP: (11 weeks/2 days) EDC: 10/26/19 Dates by First Scan: No previous this is first scan Dates by Current Scan for: (11 weeks/3 days) EDC: 10/25/19 MATERNAL ANATOMY Uterus: 11.7 x 6.0 x 8.1cm Right Ovary: not visualized Left Ovary: 2.2 x 1.7 x 1.7cm Post CDS / Adnexa: wnl Presence of free fluid: no Presence of corpus luteal cyst: no Presence of subchorionic bleed: 1.9 x 0.4 x 0.9 cm GESTATION / SURVEY CRL: 4.6cm (11 weeks/3 days) Yolk Sac (normal less than 6mm): not seen Heart Rate: 161 bpm Rhythm: Normal IUP: No IUP seen at this time Date of LMP: 01/19/19 IMPRESSION: Ultrasound gestational age is 11 weeks and 3 days. No complicating process seen.
[2019-04-08 17:37] VITALS: BP 126/62; TEMP 98
== END 2019-04-08 17:15 | disposition home or self-care (01) ==
LOC: EC 14:49
DX: O20.9 Hemorrhage in early pregnancy, unspecified (principal); Z3A.11 11 weeks gestation of pregnancy
CPT/HCPCS: 76801; 81001; 99284

== ENCOUNTER → 2019-07-11 | Outpatient (CLI) | payer BC, OTHER ==
[2019-07-11 09:37] LABS: HCT 35.7 % (34.0-46.0); HGB 11.8 gm/dL (11.4-16.0); MCH 30.7 pg (25.0-35.0); MCV 92.9 fL (80.0-100.0); Mean Platelet Volume 8.4; Platelet Count 159 k/uL (150-450); RBC 3.84 m/uL (3.80-5.40); RDW 12.7 % (11.5-15.5); WBC 9.9 k/uL (3.8-10.6)
== END | disposition home or self-care (01) ==
LOC: LABWHC1 08:30
PROVIDERS: ATTEND Obstetrics & Gynecology
DX: Z34.82 Encounter for supervision of other normal pregnancy, second trimester (principal)
CPT/HCPCS: 36415; 82950; 85027

== ENCOUNTER 2019-10-04 01:40 | Outpatient (CLI) | payer BC, OTHER ==
[2019-10-04 03:16] VITALS: BP 127/85; PULSE 87; RESP 16; TEMP 97.1
--- NOTE | 2019-10-12 08:04 | P.MSEPDOC ---
Presenting Problems - Arrival Data Date of Arrival on Unit: 10/04/19 Time of Arrival on Unit: 01:42 Mode of Transport: Ambulatory - Complaint OB-Reason for Admission/Chief Complaint: Possible Onset of Labor Comment: Contractions every 3 minutes, 5/10 pain since 0030. Medical History - Information : 3 Para: 2 Term: 2 : 0 Abortions: Spontaneous or Elective: 0 Number of Living Children: 2 - Gestational Age Gestational Age by ALLEN (wks/days): 36 Weeks and 6 Days Review of Systems - Review of Systems Constitutional: No problems Breast: No problems ENT: No problems Cardiovascular: No problems Respiratory: No problems Gastrointestinal: No problems Genitourinary: No problems Musculoskeletal: No problems Neurological: No problems Skin: No problems Vital Signs - Temperature Temperature: 97.1 F Temperature Source: Temporal Artery Scan - Pulse Right Brachial Pulse Rate: 87 Pulse Assessment Method: Automatic Cuff - Respirations Respiratory Rate: 16 Oxygen Delivery Method: Room Air O2 Sat by Pulse Oximetry: 99 - Blood Pressure Right Arm Blood Pressure: 127/85 Blood Pressure Mean: 99 Blood Pressure Source: Automatic Cuff Medical Screen Scoring (Pre) - Cervical Exam Dilation: 1-3 cm = 1 Membranes: Intact - Uterine Contractions Frequency: > or = 36 weeks =2 Duration: > 40 seconds = 2 Intensity: N/A - Maternal Vital Signs Maternal Temperature: N/A Signs of Preeclampsia: N/A Maternal Respirations: N/A - Assessment - Baby A Baseline FHR: 135 Heart Rate - NICHD Category: Category I (Normal) = 0 NST: Reactive - Total Score - Baby A Total Score - Baby A: 5 - Total Score - Baby B Total Score - Baby B: 5 - Total Score - Baby C Total Score - Baby C: 5 - Level of Risk - Baby A Level of Risk - Baby A: Low (0-5) - Level of Risk - Baby B Level of Risk - Baby B: Low (0-5) - Level of Risk - Baby C Level of Risk - Baby C: Low (0-5) Physician Notification (Pre) - Physician Notified Physician Notified Date: 10/04/19 Physician Notified Time: 03:04 New Order Received: Yes - Notification Comment Comment: Reported no cervical change after one hour, orders to d/c home and follow up with Dr. Ngo as planned 7/16. Disposition - Disposition OB Disposition: Discharge to home, Written follow up instructions reviewed Discharge Date: 10/04/19 Discharge Time: 03:05 I agree with the RN Medical Screening Exam: Yes Risk & Benefit of care provided described in d/c instruction: Yes Diagnosis: PRIMARY INADEQUATE CONTRACTIONS
== END 2019-10-04 03:05 | disposition home or self-care (01) ==
LOC: FBPOP 01:40
PROVIDERS: ATTEND Obstetrics & Gynecology
DX: O62.0 Primary inadequate contractions (principal); Z3A.36 36 weeks gestation of pregnancy
CPT/HCPCS: 59025; 99213

== ENCOUNTER 2019-10-04 16:46 | Outpatient (CLI) | payer BC, OTHER ==
[2019-10-04 18:43] VITALS: BP 132/80; PULSE 106; RESP 16; TEMP 97.8
--- NOTE | 2019-10-05 09:33 | P.MSEPDOC ---
Presenting Problems - Arrival Data Date of Arrival on Unit: 10/04/19 Time of Arrival on Unit: 16:46 Mode of Transport: Ambulatory - Complaint OB-Reason for Admission/Chief Complaint: Possible Onset of Labor Comment: ctx since 2100 last night, was in triage at 0100, discharged no cervical change 1cm Medical History - Information : 3 Para: 2 Term: 2 : 0 Abortions: Spontaneous or Elective: 0 Number of Living Children: 2 - Gestational Age Gestational Age by ALLEN (wks/days): 36 Weeks and 6 Days Review of Systems - Review of Systems Constitutional: No problems Breast: No problems ENT: No problems Cardiovascular: No problems Respiratory: No problems Gastrointestinal: No problems Genitourinary: No problems Musculoskeletal: No problems Neurological: No problems Skin: No problems Vital Signs - Temperature Temperature: 97.8 F Temperature Source: Temporal Artery Scan - Pulse Right Pulse Rate: 106 Pulse Assessment Method: Automatic Cuff - Respirations Respiratory Rate: 16 Oxygen Delivery Method: Room Air O2 Sat by Pulse Oximetry: 100 - Blood Pressure Right Arm Blood Pressure: 132/80 Blood Pressure Mean: 97 Blood Pressure Source: Automatic Cuff Medical Screen Scoring (Pre) - Cervical Exam Dilation: 1-3 cm = 1 Effacement: More than 50% = 2 Membranes: Intact - Uterine Contractions Frequency: > or = 36 weeks =2 Duration: > 40 seconds = 2 Intensity: N/A - Maternal Vital Signs Maternal Temperature: N/A Maternal Blood Pressure: N/A Signs of Preeclampsia: N/A Maternal Respirations: N/A - Maternal Trauma Maternal Trauma: N/A - Assessment - Baby A Baseline FHR: 125 Heart Rate - NICHD Category: Category I (Normal) = 0 NST: Reactive Position: N/A Station: N/A - Total Score - Baby A Total Score - Baby A: 7 - Total Score - Baby B Total Score - Baby B: 7 - Total Score - Baby C Total Score - Baby C: 7 - Level of Risk - Baby A Level of Risk - Baby A: Medium (6-9) - Level of Risk - Baby B Level of Risk - Baby B: Medium (6-9) - Level of Risk - Baby C Level of Risk - Baby C: Medium (6-9) Physician Notification (Pre) - Physician Notified Physician Notified Date: 10/04/19 Physician Notified Time: 18:06 New Order Received: Yes (discharge with instruction) - Notification Comment Comment: pt request to go home and labor until contractions become stronger and closer Disposition - Disposition OB Disposition: Triage, Discharge to home, Written follow up instructions reviewed Discharge Date: 10/04/19 Discharge Time: 18:08 I agree with the RN Medical Screening Exam: Yes Risk & Benefit of care provided described in d/c instruction: Yes Diagnosis: FALSE LABOR BEFORE 37 COMPLETED WEEKS OF GEST, THIRD TRI
== END 2019-10-04 18:08 | disposition home or self-care (01) ==
LOC: FBPOP 16:46
PROVIDERS: ATTEND Obstetrics & Gynecology
DX: O47.03 False labor before 37 completed weeks of gestation, third trimester (principal); Z3A.36 36 weeks gestation of pregnancy
CPT/HCPCS: 59025; 99213

== ENCOUNTER 2019-10-15 09:02 | Inpatient (IN) | payer BC, OTHER ==
[2019-10-15] MEDS ORDERED: OXYTOCIN 10 UNIT/ML 1 ML VIAL IM PRN (10:26)
[2019-10-15] MEDS ORDERED: CARBOPROST TROMETHAMINE 250 MCG/ML 1 ML AMP IM PRN (10:26)
[2019-10-15] MEDS ORDERED: METHYLERGONOVINE 0.2 MG/ML 1 ML AMP IM PRN (10:26)
[2019-10-15] MEDS ORDERED: LIDOCAINE 0.5% (PF) 5 MG/ML (50 ML SDV) SQ PRN (10:26)
[2019-10-15] MEDS ORDERED: TERBUTALINE 1 MG/ML VIAL SQ PRN (10:26)
[2019-10-15] MEDS: LACTATED RINGERS 1,000 ML IV SCH ×3 (10:46→12:47)
[2019-10-15 10:52] LABS: Basophils % (A) 0 %; Eosinophils % (A) 0 %; HCT 39.2 % (34.0-46.0); HGB 12.5 gm/dL (11.4-16.0); Lymphocytes # (A) 1.4 k/uL (1.0-4.8); Lymphocytes % (A) 16 %; MCH 28.3 pg (25.0-35.0); MCV 88.4 fL (80.0-100.0); Mean Platelet Volume 9.3; Monocytes # (A) 0.4 k/uL (0-1.0); Monocytes % (A) 4 %; Neutrophils # (A) 6.9 k/uL (1.3-7.7); Neutrophils % (A) 78 %; Platelet Count 148 k/uL (150-450); RBC 4.43 m/uL (3.80-5.40); RDW 13.7 % (11.5-15.5); WBC 8.9 k/uL (3.8-10.6)
[2019-10-15] MEDS ORDERED: ROPIVACAINE 5MG/ML 20ML VIAL ONE (11:13)
[2019-10-15] MEDS ORDERED: SODIUM CHLORIDE 0.9% 100 ML BAG ONE (11:13)
[2019-10-15] MEDS ORDERED: fentaNYL (PF) 50 MCG/ML 5 ML AMP ONE (11:13)
--- NOTE | 2019-10-15 11:14 | P.HPOB ---
History of Present Illness H&P Date: 10/15/19 Chief Complaint: Contractions This patient is a pleasant 28-year-old 3 para 2 female estimated date of confinement 10/26/2019 estimated gestational age 38-3/7 weeks who presents to labor and delivery with regular painful contractions. Patient was seen in the office on and was 3 cm dilated is now 6 cm dilated and found to be in active labor. care has been uncomplicated. Review of Systems Genitourinary: Reports Menstruation: Reports amenorrhea Past Medical History Past Medical History: No Reported History History of Any Multi-Drug Resistant Organisms: None Reported Past Surgical History: No Surgical Hx Reported Past Anesthesia/Blood Transfusion Reactions: No Reported Reaction Past Psychological History: No Psychological Hx Reported Smoking Status: Never smoker Past Alcohol Use History: None Reported Past Drug Use History: None Reported - Past Family History Father Family Medical History: Diabetes Mellitus, Hyperlipidemia, Hypertension Medications and Allergies Home Medications Medication Instructions Recorded Confirmed Type Pnv,Calcium 72/Iron/Folic Acid 1 tab PO DAILY 10/04/19 10/15/19 History [ Plus Tablet] Omeprazole [PriLOSEC] 20 mg PO DAILY PRN 10/15/19 10/15/19 History Allergies Allergy/AdvReac Type Severity Reaction Status Date / Time No Known Allergies Allergy Verified 10/15/19 09:04 Exam Vital Signs Temp Pulse Resp BP Pulse Ox 10/15/19 10:25 98.4 F 106 H 16 133/64 98 10/15/19 10:24 98.4 F 106 H 16 133/64 98 Intake and Output 10/14/19 10/15/19 10/15/19 22:59 06:59 14:59 Other: Weight 62.596 kg - OBG Physical Exam Abdomen: bowel sounds normal, no diffuse tenderness, no bruit present, no guarding noted, no hepatomegaly, no splenomegaly, no mass Vulva: both: normal Vagina: normal moisture, no discharge Cervix: Cervix is 6 cm dilated 50% effaced -2 station Uterus: enlarged (Fundal height consistent with term .) Results blood work shows she is AB+, rubella immune, RPR nonreactive, hepatitis B negative, HIV is nonreactive, Glucola was normal, ultrasounds of shown normal growth, group B strep was negative. Result Diagrams: 10/15/19 10:35 Abnormal Lab Results - Last 24 Hours (Table) 10/15/19 Range/Units 10:35 Plt Count 148 L (150-450) k/uL Assessment and Plan (1) 38 weeks gestation of Narrative/Plan: This is a pleasant 28-year-old 3 para 2 female 38-3/7 weeks gestation who presents in active labor. Plan is anticipate vaginal delivery. Current Visit: Yes Status: Acute Code(s): Z3A.38 - 38 WEEKS GESTATION OF SNOMED Code(s): 65090706 (2) Normal labor Current Visit: No Status: Acute Code(s): O80 - ENCOUNTER FOR FULL-TERM UNCOMPLICATED DELIVERY SNOMED Code(s): 56418734
--- NOTE | 2019-10-15 11:19 | P.MSEPDOC ---
Presenting Problems - Arrival Data Date of Arrival on Unit: 10/15/19 Time of Arrival on Unit: 09:02 Mode of Transport: Ambulatory - Complaint OB-Reason for Admission/Chief Complaint: Possible Onset of Labor Medical History - Information : 3 Para: 2 Term: 2 : 0 Abortions: Spontaneous or Elective: 0 Number of Living Children: 2 - Gestational Age Gestational Age by ALLEN (wks/days): 38 Weeks and 3 Days Review of Systems - Review of Systems Constitutional: No problems Breast: No problems ENT: No problems Cardiovascular: No problems Respiratory: No problems Gastrointestinal: No problems Genitourinary: No problems Musculoskeletal: No problems Neurological: No problems Skin: No problems Vital Signs - Temperature Temperature: 98.4 F Temperature Source: Oral - Pulse Right Brachial Pulse Rate: 106 Pulse Assessment Method: Automatic Cuff - Respirations Respiratory Rate: 16 Oxygen Delivery Method: Room Air O2 Sat by Pulse Oximetry: 98 - Blood Pressure Right Arm Blood Pressure: 133/64 Blood Pressure Mean: 87 Blood Pressure Source: Automatic Cuff Medical Screen Scoring (Pre) - Cervical Exam Dilation: 4-7 cm = 2 Membranes: Intact - Uterine Contractions Frequency: > or = 36 weeks =2 Duration: > 40 seconds = 2 Intensity: N/A - Maternal Vital Signs Maternal Temperature: N/A Maternal Blood Pressure: N/A Signs of Preeclampsia: N/A Maternal Respirations: N/A - Maternal Trauma Maternal Trauma: N/A - Assessment - Baby A Baseline FHR: 140 Heart Rate - NICHD Category: Category I (Normal) = 0 NST: Reactive Position: N/A Station: N/A - Total Score - Baby A Total Score - Baby A: 6 - Total Score - Baby B Total Score - Baby B: 6 - Total Score - Baby C Total Score - Baby C: 6 - Level of Risk - Baby A Level of Risk - Baby A: Medium (6-9) - Level of Risk - Baby B Level of Risk - Baby B: Medium (6-9) - Level of Risk - Baby C Level of Risk - Baby C: Medium (6-9) Physician Notification (Pre) - Physician Notified Physician Notified Date: 10/15/19 Physician Notified Time: 10:24 New Order Received: Yes - Notification Comment Comment: Dr. Ngo called and given report on pt. Pt c/o. Vag exam of 5/80/-2 and. 6/80/-2 after one hour. GBS neg. Orders recieved to admit pt. Coming in. Disposition - Disposition OB Disposition: Admit, LDRP Suite I agree with the RN Medical Screening Exam: Yes Risk & Benefit of care provided described in d/c instruction: Yes Diagnosis: ENCOUNTER FOR FULL-TERM UNCOMPLICATED DELIVERY
[2019-10-15] MEDS ORDERED: OXYTOCIN 30 UNITS/500 ML NS 30 UNIT in SALINE 1 500ML.BAG IV SCH (13:15)
[2019-10-15] MEDS ORDERED: SIMETHICONE 80 MG CHEWABLE PO PRN (14:34)
[2019-10-15] MEDS ORDERED: LANOLIN CREAM 5 GM TUBE TOPICAL PRN (14:34)
[2019-10-15] MEDS ORDERED: ZOLPIDEM 5 MG TAB PO PRN (14:34)
[2019-10-15] MEDS ORDERED: BENZOCAINE/MENTHOL SPRAY 1 GM/SPRAY AEROSOL TOPICAL PRN (14:34)
[2019-10-15] MEDS ORDERED: HYDROCORTISONE 2.5% RECTAL CREAM 30 GM TUBE RECTAL PRN (14:34)
[2019-10-15] MEDS ORDERED: diphenhydrAMINE 50 MG/ML 1 ML VIAL IVP PRN (14:34)
[2019-10-15] MEDS ORDERED: diphenhydrAMINE 25 MG CAP PO PRN (14:34)
[2019-10-15] MEDS ORDERED: ACETAMINOPHEN TAB 325 MG TAB PO PRN (14:34)
[2019-10-15] MEDS ORDERED: bisacodyL 10 MG SUPP RECTAL PRN (14:34)
--- NOTE | 2019-10-15 14:38 | P.PROBDLV ---
Vaginal Delivery Note - . Vaginal Delivery Note: Normal vaginal delivery viable female Apgars 9 and 10 delivery time is 1420 hrs. Please see dictated H&P for intimate details of this patient's admission. Brief summary is a pleasant 28-year-old 3 para 2 female estimated gestational age 38-3/7 weeks who presents to labor and delivery with complaints of contractions found to be 6 cm dilated in active labor. Patient is artificial rupture membranes for clear fluid and labor progresses. She does get an epidural for pain control. Patient quickly thereafter gets to complete pushes the head to the perineum. Posterior perineum was supported and we have controlled delivery of infant's head over the intact perineum. Mouth and nares are bulb suctioned. There is no evidence of a nuchal cord. Gentle downward traction we then have deliver the anterior and posterior shoulder and rest this 's body. This is a vigorous viable female Apgars are 9 and 10 delivery time is 1420 hrs. has spontaneous respirations and good cry. The cord is doubly clamped immediately to the patient does have a history of mild jaundice with her other 2 children. The placenta spontaneously delivered intact and of note there is a true knot in the umbilical cord. Inspection of the perineum shows a very small first-degree lacerations repaired with 3-0 Vicryl in the usual fashion. Excellent reapproximation is noted a blood loss is approximately 100 mL. There are no complications. Infant and mother stable delivery room.
[2019-10-15] MEDS: IBUPROFEN 600 MG TAB PO PRN ×2 (14:43→20:57)
[2019-10-15] MEDS ORDERED: OXYTOCIN 20 UNITS/1000 ML NS 1,000 ML IV SCH (14:45)
[2019-10-16] MEDS: SENNOSIDES-DOCUSATE SODIUM 1 EACH TAB PO SCH ×2 (03:08→08:14)
[2019-10-16] MEDS: IBUPROFEN 600 MG TAB PO PRN ×3 (03:20→14:50)
--- NOTE | 2019-10-16 06:56 | P.PNOBGVD ---
Subjective - Subjective Patient reports: Reports appetite normal, Reports voiding normally, Reports pain well controlled, Reports ambulating normally : doing well Objective - Latest Vital Signs Latest vital signs: Vital Signs Temp Pulse Resp BP Pulse Ox 10/16/19 00:00 99.3 F 65 14 122/72 98 10/15/19 20:00 98.7 F 84 14 130/80 98 10/15/19 16:30 75 16 117/68 10/15/19 16:00 73 16 127/64 10/15/19 15:30 80 16 133/67 10/15/19 15:15 74 16 133/61 10/15/19 15:00 90 16 127/88 10/15/19 14:45 86 16 132/63 10/15/19 14:30 98.3 F 107 H 16 114/68 10/15/19 11:19 98.4 F 106 H 16 133/64 98 10/15/19 10:25 98.4 F 106 H 16 133/64 98 10/15/19 10:24 98.4 F 106 H 16 133/64 98 Intake and Output 10/15/19 10/15/19 10/16/19 14:59 22:59 06:59 Other: # Voids 1 1 1 Weight 62.596 kg - Exam Lungs: bilateral: normal Chest: Normal S1, Normal S2 Extremities: Present: normal Abdomen: Present: normal appearance, soft Uterus: Present: normal, firm - Labs Labs: Abnormal Lab Results - Last 24 Hours (Table) 10/15/19 Range/Units 10:35 Plt Count 148 L (150-450) k/uL Assessment and Plan Assessment: Post day #1. Patient is resting without complaints and wishes to go home. Vital signs are stable she is afebrile. Uterus is firm nontender and she is having normal lochia. My impression is a normal course. Plan is to continue routine care and discharge home today. (1) 38 weeks gestation of Current Visit: Yes Status: Acute Code(s): Z3A.38 - 38 WEEKS GESTATION OF SNOMED Code(s): 27167560 (2) Normal labor Current Visit: No Status: Acute Code(s): O80 - ENCOUNTER FOR FULL-TERM UNCOMPLICATED DELIVERY SNOMED Code(s): 89046312
--- NOTE | 2019-10-16 06:59 | P.DS ---
Providers Date of admission: 10/15/19 10:20 Expected date of discharge: 10/16/19 Attending physician: Laith Ngo Primary care physician: Stated None - Discharge Diagnosis(es) (1) 38 weeks gestation of Current Visit: Yes Status: Acute (2) Normal labor Current Visit: No Status: Acute Hospital Course: Please see dictated H&P for intimate details of this patient's admission. Brief summary this pleasant 28-year-old 3 para 2 female 38-3/7 weeks gestation admitted to labor and delivery in active labor. Patient quickly goes on to have a vaginal delivery viable female infant. Please see dictated delivery note. day #1 patient wishes to go home was felt stable for discharge home follow up with me in 6 weeks Procedures: Normal spontaneous vaginal delivery Patient Condition at Discharge: Good Plan - Discharge Summary New Discharge Prescriptions: New Ibuprofen [Motrin] 600 mg PO Q6HR PRN #30 tab PRN Reason: Mild Pain Or Fever >= 100.5 No Action Pnv,Calcium 72/Iron/Folic Acid [ Plus Tablet] 1 tab PO DAILY Omeprazole [PriLOSEC] 20 mg PO DAILY PRN PRN Reason: Heartburn Discharge Medication List Pnv,Calcium 72/Iron/Folic Acid [ Plus Tablet] 1 tab PO DAILY 10/04/19 [History] Omeprazole [PriLOSEC] 20 mg PO DAILY PRN 10/15/19 [History] Ibuprofen [Motrin] 600 mg PO Q6HR PRN #30 tab 10/16/19 [Rx] Follow up Appointment(s)/Referral(s): Laith Ngo MD [STAFF PHYSICIAN] - 6 Weeks Patient Instructions/Handouts: Vaginal Delivery (DC) Activity/Diet/Wound Care/Special Instructions: No intercourse or anything per vagina for 6 weeks. Please call if any fever, chills, excessive vaginal bleeding, and/or abdominal pain Discharge Disposition: HOME SELF-CARE
[2019-10-16 08:13] VITALS: BP 115/70; PULSE 76; RESP 16; TEMP 98.1
== END 2019-10-16 14:50 | disposition home or self-care (01) | DRG 807 ==
LOC: FBPOP 09:02 → 4FBP 10:20
PROVIDERS: ADMIT Obstetrics & Gynecology; ATTEND Obstetrics & Gynecology
PROC: 3E0R3BZ Introduction of Anesthetic Agent into Spinal Canal, Percutaneous Approach (ICD-10-PCS; principal; 2019-10-15)
PROC: 00HU33Z Insertion of Infusion Device into Spinal Canal, Percutaneous Approach (ICD-10-PCS; principal; 2019-10-15)
PROC: 10E0XZZ Delivery of Products of Conception, External Approach (ICD-10-PCS; principal; 2019-10-15)
PROC: 0HQ9XZZ Repair Perineum Skin, External Approach (ICD-10-PCS; principal; 2019-10-15)
DX: O69.2XX0 Labor and delivery complicated by other cord entanglement, with compression, not applicable or unspecified (principal); Z37.0 Single live birth; O70.0 First degree perineal laceration during delivery; O99.62 Diseases of the digestive system complicating childbirth; Z3A.38 38 weeks gestation of pregnancy; Z79.899 Other long term (current) drug therapy; Z82.49 Family history of ischemic heart disease and other diseases of the circulatory system; Z83.3 Family history of diabetes mellitus; Z83.49 Family history of other endocrine, nutritional and metabolic diseases
CPT/HCPCS: 59025; 85025; 86850; 86900; 86901; 99213

== ENCOUNTER → 2021-09-21 | Outpatient (CLI) | payer BC ==
[2021-09-21 16:08] LABS: African American GFR (CKD) 137.5 (60.0-200.0); Non-African American GFR(CKD) 118.6 (60.0-200.0)
[2021-09-21 16:13] LABS: Hepatitis B Surface Antigen Nonreactive (Nonreactive)
[2021-09-21 16:14] LABS: HCT 37.8 % (37.2-46.3); HGB 12.2 g/dL (12.0-15.0); MCH 28.3 pg (27.0-32.0); MCHC 32.3 g/dL (32.0-37.0); MCV 87.7 fL (80.0-97.0); Mean Platelet Volume 11.1 fL (9.5-12.2); NRBC Per 100 WBC 0 /100 WBCS (0.0-0.0); Platelet Count 194 X 10*3/uL (140-440); RBC 4.31 X 10*6/uL (4.10-5.20); RDW 12.9 % (11.5-14.5); WBC 5.89 X 10*3/uL (4.50-10.00)
[2021-09-24 03:27] LABS: Toxoplasma Antibody (IgG) <3.0 IU/mL (<7.2); Toxoplasma Antibody (IgM) <3.0 AU/mL (<8.0)
[2021-09-24 09:13] LABS: HIV 2 AB Non-Reactive (Non-Reactive); HIV AB P24 Non-Reactive (Non-Reactive); HIV P24 AG Non-Reactive (Non-Reactive)
== END | disposition home or self-care (01) ==
LOC: LABWHC1 10:02
PROVIDERS: ATTEND Obstetrics & Gynecology
DX: Z34.81 Encounter for supervision of other normal pregnancy, first trimester (principal); Z3A.00 Weeks of gestation of pregnancy not specified
CPT/HCPCS: 36415; 82565; 82947; 85027; 86762; 86777; 86778; 86780; 86850; 86900; 86901; 87340; 87390

== ENCOUNTER → 2022-01-15 | Outpatient (CLI) | payer BC ==
[2022-01-15 18:38] LABS: HCT 29.4 % (37.2-46.3); HGB 9.5 g/dL (12.0-15.0); MCH 28.4 pg (27.0-32.0); MCHC 32.3 g/dL (32.0-37.0); MCV 87.8 fL (80.0-97.0); Mean Platelet Volume 10.4 fL (9.5-12.2); NRBC Per 100 WBC 0 /100 WBCS (0.0-0.0); Platelet Count 168 X 10*3/uL (140-440); RBC 3.35 X 10*6/uL (4.10-5.20); RDW 13.2 % (11.5-14.5); WBC 9.99 X 10*3/uL (4.50-10.00)
== END | disposition home or self-care (01) ==
LOC: LABWHC1 12:02
PROVIDERS: ATTEND Obstetrics & Gynecology
DX: Z34.82 Encounter for supervision of other normal pregnancy, second trimester (principal); Z3A.00 Weeks of gestation of pregnancy not specified
CPT/HCPCS: 36415; 85027

== ENCOUNTER 2022-03-29 13:01 | Outpatient (CLI) | payer BC ==
[2022-03-29 15:01] VITALS: BP 140/78; PULSE 120; RESP 17; TEMP 98.1
--- NOTE | 2022-03-30 08:07 | P.MSEPDOC ---
Presenting Problems - Arrival Data Date of Arrival on Unit: 03/29/22 Time of Arrival on Unit: 13:01 Mode of Transport: Ambulatory - Complaint OB-Reason for Admission/Chief Complaint: Rule Out PROM, Other Comment: pt 37 5/7 weeks arrived to the unit c/o contractions since last night and c/o small leaking at intervls and not sure whether her water broke. pt also stated she had intercourse last night Medical History - Information : 4 Para: 3 Term: 3 : 0 Abortions: Spontaneous or Elective: 0 Number of Living Children: 3 - Gestational Age Gestational Age by ALLEN (wks/days): 37 Weeks and 5 Days Review of Systems - Review of Systems Constitutional: No problems Breast: No problems ENT: No problems Cardiovascular: No problems Respiratory: No problems Gastrointestinal: No problems Genitourinary: No problems Musculoskeletal: No problems Neurological: No problems Skin: No problems Vital Signs - Temperature Temperature: 98.1 F Temperature Source: Oral - Pulse Right Brachial Pulse Rate: 120 Pulse Assessment Method: Automatic Cuff - Respirations Respiratory Rate: 17 Oxygen Delivery Method: Room Air O2 Sat by Pulse Oximetry: 97 - Blood Pressure Right Arm Blood Pressure: 140/78 Blood Pressure Mean: 98 Blood Pressure Source: Automatic Cuff Medical Screen Scoring - Cervical Exam Dilation (cm): 2 Effacement (%): 60 Station: -2 Membranes: Intact - Uterine Contractions Frequency From (mins): 10 Frequency To (mins): 12 Duration From (seconds): 40 Intensity: Mild Resting: Soft to palpation - Assessment - Baby A Baseline FHR: 140 Heart Rate - NICHD Category: Category I (Normal) Physician Notification - Physician Notified Physician Notified Date: 03/29/22 Physician Notified Time: 14:46 Physician: dr garvin New Order Received: Yes - Notification Comment Comment: may discharge to [facility] with instructions Maternal Triage Index - Non-Urgent/Priority 4 Non-Urgent Priority 4: Yes Criteria Met for Priority 4: pt arrived c/o mild contractions and not sure whether her water is leaking. pt 37 5/7 weeks gestation Disposition - Disposition OB Disposition: Discharge to home Discharge Date: 03/29/22 Discharge Time: 14:49 I agree with the RN Medical Screening Exam: Yes Case reviewed; plan agreed upon as documented in EMR&OBIX.: Yes Diagnosis: FALSE LABOR AT OR AFTER 37 COMPLETED WEEKS OF GESTATION
== END 2022-03-29 14:49 | disposition home or self-care (01) ==
LOC: FBPOP 13:01
PROVIDERS: ATTEND Obstetrics & Gynecology
DX: O47.1 False labor at or after 37 completed weeks of gestation (principal); Z3A.37 37 weeks gestation of pregnancy
CPT/HCPCS: 59025; 84112; 99213

== ENCOUNTER 2022-04-06 11:02 | Outpatient (CLI) | payer BC ==
[2022-04-06 11:37] VITALS: BP 123/75; PULSE 110; RESP 18; TEMP 97.9
--- NOTE | 2022-04-22 02:06 | P.MSEPDOC ---
Presenting Problems - Arrival Data Date of Arrival on Unit: 04/06/22 Time of Arrival on Unit: 11:02 Mode of Transport: Ambulatory - Complaint OB-Reason for Admission/Chief Complaint: Possible Onset of Labor Comment: Patient states contractions are irregular and started last night Medical History - Information : 4 Para: 3 Term: 3 : 0 Abortions: Spontaneous or Elective: 0 Number of Living Children: 3 - Gestational Age Gestational Age by ALLEN (wks/days): 38 Weeks and 6 Days Review of Systems - Review of Systems Constitutional: No problems Breast: No problems ENT: No problems Cardiovascular: No problems Respiratory: No problems Gastrointestinal: No problems Genitourinary: No problems Musculoskeletal: No problems Neurological: No problems Skin: No problems Vital Signs - Temperature Temperature: 97.9 F Temperature Source: Temporal Artery Scan - Pulse Right Brachial Pulse Rate: 110 Pulse Assessment Method: Automatic Cuff - Respirations Respiratory Rate: 18 Oxygen Delivery Method: Room Air O2 Sat by Pulse Oximetry: 98 - Blood Pressure Right Arm Blood Pressure: 123/75 Blood Pressure Mean: 91 Blood Pressure Source: Automatic Cuff Medical Screen Scoring - Cervical Exam Dilation (cm): 2 Effacement (%): 70 Station: -2 Membranes: Intact - Uterine Contractions Frequency From (mins): 5 Frequency To (mins): 15 Intensity: Mild Resting: Soft to palpation - Assessment - Baby A Baseline FHR: 155 Heart Rate - NICHD Category: Category I (Normal) NST: Reactive Physician Notification - Physician Notified Physician Notified Date: 04/06/22 Physician Notified Time: 12:15 Physician: Dr Irvin New Order Received: Yes - Notification Comment Comment: Order to D/C Home with instructions Maternal Triage Index - Maternal Triage Index Presenting for scheduled procedure w/no complaint: No - Stat/Priority 1 Stat Priority 1: No - Urgent/Priority 2 Urgent Priority 2: No - Prompt/Priority 3 Prompt Priority 3: No - Non-Urgent/Priority 4 Non-Urgent Priority 4: Yes Criteria Met for Priority 4: Irregular contractions at 38 6/7 weeks gestation. Will recheck patient in [address] Irvin again. Disposition - Disposition OB Disposition: Triage, Discharge to home Discharge Date: 04/06/22 Discharge Time: 12:20 I agree with the RN Medical Screening Exam: Yes Case reviewed; plan agreed upon as documented in EMR&OBIX.: Yes Diagnosis: PRIMARY INADEQUATE CONTRACTIONS
== END 2022-04-06 12:20 | disposition home or self-care (01) ==
LOC: FBPOP 11:02
PROVIDERS: ATTEND Obstetrics & Gynecology
DX: O62.0 Primary inadequate contractions (principal); Z3A.38 38 weeks gestation of pregnancy
CPT/HCPCS: 59025; 99213

== ENCOUNTER 2022-04-07 18:34 | Inpatient (IN) | payer BC ==
[2022-04-07] MEDS ORDERED: TERBUTALINE 1 MG/ML VIAL SQ PRN (18:53)
[2022-04-07] MEDS ORDERED: LIDOCAINE 0.5% (PF) 5 MG/ML (50 ML SDV) SQ PRN (18:53)
[2022-04-07] MEDS ORDERED: LACTATED RINGERS 1,000 ML IV SCH (19:00)
[2022-04-07 19:29] LABS: Basophils # (A) 0.1 k/uL (0-0.2); Basophils % (A) 1 %; Eosinophils # (A) 0.1 k/uL (0-0.7); Eosinophils % (A) 1 %; HCT 32.2 % (34.0-46.0); HGB 10.1 gm/dL (11.4-16.0); Hypochromasia Moderate; Lymphocytes # (A) 1.8 k/uL (1.0-4.8); Lymphocytes % (A) 17 %; MCH 24.3 pg (25.0-35.0); MCHC 31.3 g/dL (31.0-37.0); MCV 77.9 fL (80.0-100.0); Mean Platelet Volume 9.3; Monocytes # (A) 0.5 k/uL (0-1.0); Monocytes % (A) 5 %; Neutrophils # (A) 7.9 k/uL (1.3-7.7); Neutrophils % (A) 75 %; Platelet Count 153 k/uL (150-450); Poikilocytosis Slight; RBC 4.13 m/uL (3.80-5.40); RDW 15.5 % (11.5-15.5); WBC 10.5 k/uL (3.8-10.6)
--- NOTE | 2022-04-07 20:13 | P.HPOB ---
History of Present Illness H&P Date: 04/07/22 Chief Complaint: Contractions This is a 31-year-old female 4 para 3 with an estimated date of confinement of 04/14/2022, estimated gestational age of 39-6/7 weeks, who presents to labor and delivery for complaints of contractions since approximately 9:30 AM this morning. She denied any rupture of membranes. care has been with Dr. Ngo and has been uncomplicated. labs: Group B streptococcus-negative Hemoglobin-9.5 Jellybean Glucola-normal Random glucose-125 Hepatitis B surface antigen-nonreactive Syphilis antibody-negative nonreactive Rubella-immune Blood type-80 positive Antibody screen-negative Toxoplasma screen-negative HIV-nonreactive GC/chlamydia/Trichomonas-negative Obstetrical history: . History of 3 vaginal deliveries at term. Her first delivery she did have a fourth degree tear. Social history: She is . She is a homemaker. Review of Systems Constitutional: Denies chills, Denies fever Eyes: denies blurred vision, denies pain Ears, nose, mouth and throat: Denies headache, Denies sore throat Cardiovascular: Denies chest pain, Denies shortness of breath Respiratory: Denies cough Gastrointestinal: Reports abdominal pain (Contractions) Genitourinary: Reports pelvic pain, Reports , Denies dysuria, Denies hematuria Musculoskeletal: Reports low back pain Integumentary: Denies pruritus, Denies rash Neurological: Denies numbness, Denies weakness Psychiatric: Reports anxiety, Reports depression Past Medical History Past Medical History: No Reported History History of Any Multi-Drug Resistant Organisms: None Reported Past Surgical History: No Surgical Hx Reported Past Anesthesia/Blood Transfusion Reactions: No Reported Reaction Past Psychological History: Anxiety, Depression Smoking Status: Never smoker Past Alcohol Use History: Occasional Past Drug Use History: None Reported - Past Family History Father Family Medical History: Diabetes Mellitus, Hyperlipidemia, Hypertension Medications and Allergies Home Medications Medication Instructions Recorded Confirmed Type Vit No.180/Iron/Folic 1 tab PO DAILY 10/04/19 04/07/22 History [ Plus Tablet] Omeprazole [PriLOSEC] 20 mg PO DAILY PRN 10/15/19 04/07/22 History Sertraline [Zoloft] 50 mg PO DAILY 03/29/22 04/07/22 History Allergies Allergy/AdvReac Type Severity Reaction Status Date / Time No Known Allergies Allergy Verified 03/29/22 13:10 Exam Osteopathic Statement: *. No significant issues noted on an osteopathic struct ural exam other than those noted in the History and Physical/Consult. Vital Signs Temp Pulse Resp BP 04/07/22 18:43 98.4 F 90 16 141/67 Intake and Output 04/07/22 04/07/22 04/07/22 06:59 14:59 22:59 Other: Weight 70.307 kg HEENT: Within normal limits Heart: Regular rate and rhythm Lungs: Clear to auscultation bilaterally Abdomen: Cervix: 7 cm/90%/-1 station with bulging bag heart tones: Category 1 Contractions: Every 2-3 minutes Extremities: Negative Homans Results Result Diagrams: 04/07/22 19:20 Abnormal Lab Results - Last 24 Hours (Table) 04/07/22 Range/Units 19:20 Hgb 10.1 L (11.4-16.0) gm/dL Hct 32.2 L (34.0-46.0) % MCV 77.9 L (80.0-100.0) fL MCH 24.3 L (25.0-35.0) pg Neutrophils # 7.9 H (1.3-7.7) k/uL Assessment and Plan (1) 39 weeks gestation of Current Visit: Yes Status: Acute Code(s): Z3A.39 - 39 WEEKS GESTATION OF SNOMED Code(s): 88589991 Plan: Admission for active labor. Epidural anesthesia if desired. Expectant management.
--- NOTE | 2022-04-07 20:16 | P.PROBDLV ---
Vaginal Delivery Note - . Vaginal Delivery Note: The patient progressed fairly rapidly to 9-1/2 cm with bulging bag. She was unable to get an epidural and therefore did use nitrous oxide. Artificial rupture membranes is carried out with clear fluid noted. Shortly after that she felt a strong urge to push. She began pushing and brought 's to a crown. Infant's head then delivered across the perineum followed by the anterior shoulder. Nose and mouth are bulb suctioned and with one remaining push, the remainder the easily delivered and was placed on mother's abdomen. A viable female was noted with scores of 9 at 1 minute and 9 at 5 minutes and weight of 7 pounds 5.3 ounces. Placenta delivered shortly thereafter, intact, with a three-vessel cord. Uterus contracted fairly well after oxytocin was given and uterine massage was carried out. Inspection of the perineum revealed a first-degree perineal laceration. This area was anesthetized with 1% lidocaine and sutured with 3-0 Vicryl suture in a running locked fashion. Estimated blood loss is approximately 150 mL's. Both mother and are in stable condition.
[2022-04-07] MEDS ORDERED: LANOLIN CREAM 5 GM TUBE TOPICAL PRN (20:18)
[2022-04-07] MEDS ORDERED: ZOLPIDEM 5 MG TAB PO PRN (20:18)
[2022-04-07] MEDS ORDERED: diphenhydrAMINE 50 MG/ML 1 ML VIAL IVP PRN ×2 (20:18)
[2022-04-07] MEDS ORDERED: SIMETHICONE 80 MG CHEWABLE PO PRN (20:18)
[2022-04-07] MEDS ORDERED: BENZOCAINE/MENTHOL SPRAY 1 GM/SPRAY AEROSOL TOPICAL PRN (20:18)
[2022-04-07] MEDS ORDERED: diphenhydrAMINE 25 MG CAP PO PRN (20:18)
[2022-04-07] MEDS ORDERED: PANTOPRAZOLE 40 MG TABLET PO PRN (20:18)
[2022-04-07] MEDS ORDERED: diphenhydrAMINE 50 MG CAP PO PRN (20:18)
[2022-04-07] MEDS ORDERED: HYDROCORTISONE 2.5% RECTAL CREAM 30 GM TUBE RECTAL PRN (20:18)
[2022-04-07] MEDS: IBUPROFEN 600 MG TAB PO PRN (20:27)
[2022-04-07] MEDS ORDERED: OXYTOCIN 30 UNITS/500 ML NS 30 UNIT in SALINE 1 500ML.BAG IV SCH (20:30)
[2022-04-07] MEDS: ACETAMINOPHEN TAB 325 MG TAB PO PRN (22:36)
[2022-04-08] MEDS: IBUPROFEN 600 MG TAB PO PRN ×3 (02:50→16:19)
--- NOTE | 2022-04-08 05:55 | P.PNOBGVD ---
Subjective - Subjective Patient reports: Reports appetite normal, Reports voiding normally, Reports pain well controlled, Reports ambulating normally : doing well Objective - Latest Vital Signs Latest vital signs: Vital Signs Temp Pulse Pulse Resp BP BP Pulse Ox 04/08/22 04:00 97.6 F 69 18 122/65 97 04/07/22 23:56 98.7 F 56 L 18 134/69 04/07/22 22:11 57 L 18 148/70 04/07/22 21:41 58 L 18 135/67 04/07/22 21:06 98.9 F 59 L 18 127/71 04/07/22 20:49 65 18 150/75 04/07/22 20:35 98.6 F 73 18 147/70 04/07/22 20:22 75 18 142/65 04/07/22 20:00 90 18 163/82 04/07/22 19:14 98.7 F 80 18 130/74 04/07/22 18:43 98.4 F 90 16 141/67 Intake and Output 04/07/22 04/07/22 04/08/22 14:59 22:59 06:59 Intake Total 161.433 Output Total 280 Balance -118.567 Intake: Intake, IV Titration 161.433 Amount Oxytocin 30 Units/500 ml 161.433 Ns 30 unit In Saline 1 500ml.bag @ Per Protocol IV .Q0M [facility] Rx#:[id number] Output: Estimated Blood Loss 150 Output, Quantitative 130 Blood Loss Other: # Voids 1 1 Weight 70.307 kg - Exam Lungs: bilateral: normal Chest: Normal S1, Normal S2 Extremities: Present: normal Abdomen: Present: normal appearance, soft Uterus: Present: normal, firm - Labs Labs: Abnormal Lab Results - Last 24 Hours (Table) 04/07/22 Range/Units 19:20 Hgb 10.1 L (11.4-16.0) gm/dL Hct 32.2 L (34.0-46.0) % MCV 77.9 L (80.0-100.0) fL MCH 24.3 L (25.0-35.0) pg Neutrophils # 7.9 H (1.3-7.7) k/uL Assessment and Plan Assessment: day #1. Patient is resting without complaints and wishes to go home. Vital signs are stable she is afebrile. Uterus is firm nontender and she is having normal lochia. My impression this is a normal course. Plan is to continue routine care discharge home later today. (1) Normal labor Current Visit: No Status: Acute Code(s): O80 - ENCOUNTER FOR FULL-TERM UNCOMPLICATED DELIVERY SNOMED Code(s): 04629296
--- NOTE | 2022-04-08 05:58 | P.DS ---
Providers Date of admission: 04/07/22 19:02 Expected date of discharge: 04/08/22 Attending physician: Radha Dumont Primary care physician: Laith Ngo - Discharge Diagnosis(es) (1) Normal labor Current Visit: No Status: Acute Hospital Course: Please see dictated H&P and delivery note per Dr. Dumont. In brief summary this is a pleasant 31-year-old 4 para 3 female 39 weeks gestation admitted to labor and delivery in active labor. Patient quickly goes on to have a vaginal delivery viable female infant. Please see dictated delivery note. day #1 patient's felt be stable for discharge home follow up with me in 6 weeks. Procedures: Normal spontaneous vaginal delivery Patient Condition at Discharge: Good Plan - Discharge Summary New Discharge Prescriptions: New Ibuprofen [Motrin] 600 mg PO Q6HR PRN #30 tab PRN Reason: Mild Pain (Scale 1 To 3) No Action Vit No.180/Iron/Folic [ Plus Tablet] 1 tab PO DAILY Omeprazole [PriLOSEC] 20 mg PO DAILY PRN PRN Reason: Heartburn Sertraline [Zoloft] 50 mg PO DAILY Discharge Medication List Vit No.180/Iron/Folic [ Plus Tablet] 1 tab PO DAILY 10/04/19 [History] Omeprazole [PriLOSEC] 20 mg PO DAILY PRN 10/15/19 [History] Sertraline [Zoloft] 50 mg PO DAILY 03/29/22 [History] Ibuprofen [Motrin] 600 mg PO Q6HR PRN #30 tab 04/08/22 [Rx] Follow up Appointment(s)/Referral(s): Laith Ngo MD [Primary Care Provider] - 6 Weeks Patient Instructions/Handouts: Vaginal Delivery (DC) Activity/Diet/Wound Care/Special Instructions: No intercourse or anything per vagina for 6 weeks. Please call if any fever, chills, excessive vaginal bleeding, and/or abdominal pain. Discharge Disposition: HOME SELF-CARE
[2022-04-08] MEDS: ACETAMINOPHEN TAB 325 MG TAB PO PRN ×3 (06:46→19:53)
[2022-04-08 08:57] VITALS: RESP 16
[2022-04-08] MEDS ORDERED: PRENATAL VIT-IRON-FOLIC ACID 1 EACH TABLET PO SCH (09:00)
[2022-04-08] MEDS ORDERED: SERTRALINE 50 MG TAB PO SCH (09:00)
[2022-04-08] MEDS: SENNOSIDES-DOCUSATE SODIUM 1 EACH TAB PO SCH ×2 (09:15→19:54)
[2022-04-08 16:07] VITALS: PULSE 63; TEMP 98.7
[2022-04-08 16:54] VITALS: BP 136/79
[2022-04-08] MEDS ORDERED: SERTRALINE 100 MG TAB PO SCH (21:00)
== END 2022-04-08 20:40 | disposition home or self-care (01) | DRG 807 ==
LOC: FBPOP 18:34 → 4FBP 19:02
PROVIDERS: ADMIT Obstetrics & Gynecology; ATTEND Obstetrics & Gynecology
PROC: 10E0XZZ Delivery of Products of Conception, External Approach (ICD-10-PCS; principal; 2022-04-07)
PROC: 0HQ9XZZ Repair Perineum Skin, External Approach (ICD-10-PCS; 2022-04-07)
DX: O70.0 First degree perineal laceration during delivery (principal); Z37.0 Single live birth; Z3A.39 39 weeks gestation of pregnancy; Z79.899 Other long term (current) drug therapy
CPT/HCPCS: 59025; 85025; 86850; 86900; 86901; 99213